=== PATIENT | male | born 1950 | race Caucasian/White ===

== ENCOUNTER 2021-10-10 10:34 | Day surgery (SDC) | payer MEDICARE ==
[2021-10-09 11:13] LABS: BASOPHILS % (AUTO) 0.5 % (0-1); EOSINOPHILS # (AUTO) 0.2 X10'3 (0-0.9); EOSINOPHILS % (AUTO) 3.3 % (0-6); HEMATOCRIT 40.3 % (42.0-52.0); HEMOGLOBIN 13.4 g/dl (14.0-17.9); LYMPHOCYTES # (AUTO) 1.2 X10'3 (1.1-4.8); MEAN CORPUSCULAR HEMOGLOBIN 29.5 PG (27.0-31.0); MEAN CORPUSCULAR HGB CONC 33.4 g/dL (33.0-36.5); MEAN CORPUSCULAR VOLUME 88.4 FL (78-98); MEAN PLATELET VOLUME 9.2 FL (7.4-10.4); MONOCYTES # (AUTO) 0.4 X10'3 (0-0.9); MONOCYTES % (AUTO) 7.9 % (2-12); NEUTROPHILS # (AUTO) 3.6 X10'3 (1.8-7.7); NEUTROPHILS % (AUTO) 66.3 % (42-75); PLATELET COUNT 189 X10'3 (140-440); RED BLOOD COUNT 4.56 X10'6 (4.70-6.10); RED CELL DISTRIBUTION WIDTH 13.5 % (11.5-14.5); WHITE BLOOD COUNT 5.4 X10'3 (4.5-11.0)
[2021-10-09 11:16] LABS: APTT 25 SECONDS (22-32)
[2021-10-09 11:25] LABS: ALBUMIN 3.9 G/DL (3.4-5.0); ANION GAP 9 (8-16); BLOOD UREA NITROGEN 15 MG/DL (7-18); BUN/CREATININE RATIO 17.6 (5.4-32.0); CALCIUM 8.3 MG/DL (8.5-10.1); CHLORIDE 108 MMOL/L (99-107); CHOL/HDL RATIO 2.3 (0.00-4.99); CHOLESTEROL 108 MG/DL (0-200); CREATININE 0.85 MG/DL (0.60-1.10); GLUCOSE 116 MG/DL (70-104); HDL CHOLESTEROL 46 MG/DL (35-60); LDL CHOLESTEROL 52 MG/DL (50-100); POTASSIUM 3.9 MMOL/L (3.5-5.1); SODIUM 142 MMOL/L (135-145); TOTAL CARBON DIOXIDE 24.9 MMOL/L (24-32); TRIGLYCERIDES 68 MG/DL (20-135); eGFR 89 ML/MIN
[~2021-10-10] VITALS: Ht 175.3 cm; Wt 94.3 kg
[2021-10-10] VITALS (13 sets, daily range): BP systolic 99–127; BP diastolic 58–77
[~2021-10-10 10:34] MED LIST: DESM0.2T23 NS; OMEP20TA43 PO
[2021-10-10] MEDS ORDERED: LORazepam 0.5 MG tablet PO PRN (10:55)
[2021-10-10] MEDS ORDERED: diphenhydrAMINE 25mg capsule PO PRN (10:55)
[2021-10-10] MEDS ORDERED: normal saline 1,000 ML IV SCH (10:55)
[2021-10-10] MEDS ORDERED: METO-395 PO (11:00)
[2021-10-10] MEDS ORDERED: DESM0.2T29 PO (11:00)
[2021-10-10] MEDS ORDERED: ATOR40TA72 PO (11:00)
[2021-10-10] MEDS ORDERED: FLO0.4C PO (11:00)
[2021-10-10] MEDS ORDERED: juice plus PO (11:00)
[2021-10-10] MEDS ORDERED: ASPI-920 PO (11:00)
[2021-10-10] MEDS ORDERED: nitroGLYCERIN-Tridil 50MG/D5W 250 ML IV ONE (11:55)
[2021-10-10] MEDS ORDERED: midazolam 1 mg/ML 2ml injection ONE (11:55)
[2021-10-10] MEDS ORDERED: fentaNYL/PF 50MCG/1 ML 2ML syringe ONE (11:55)
[2021-10-10] MEDS ORDERED: iohexol 350MG/ML 100ml bottle IV ONE (11:55)
[2021-10-10] MEDS ORDERED: heparin 1,000unit/ml 10ml vial 10 ML ONE (11:55)
[2021-10-10] MEDS ORDERED: verapamil 2.5 mg/ml inj IV ONE (11:55)
[2021-10-10] MEDS ORDERED: LIDOcaine 1%/PF 5ML 10 MG/ML VIAL ONE (11:56)
[2021-10-10] MEDS ORDERED: heparin 1,000 UNITS/NS 500ml 500 ML ONE (11:58)
[2021-10-10] MEDS ORDERED: aspirin 325mg tablet ONE (13:31)
[2021-10-10] MEDS ORDERED: clopidogrel 300mg tablet ONE (13:31)
[2021-10-10] MEDS ORDERED: HYDROcodone/acetaminophen 5mg/325mg tablet PO PRN (14:05)
[2021-10-10] MEDS ORDERED: HYDROcodone/acetaminophen 10/325mg tab PO PRN (14:05)
--- NOTE | 2021-10-10 14:30 | NUR ---
Approx 1430 phoned daughter Tiffanie, notified of approx DC home time and asked her to [employer] spot picker Plavix prescription and bring pills back when she picks up pt for DC. Pt drowsy, resting comfortably, awakens easily but falls back to sleep quickly.
--- NOTE | 2021-10-10 15:45 | NUR ---
Pt sitting up in bed eating turkey sandwich and drinking water without issues.
== END 2021-10-10 16:50 | disposition home or self-care (01) ==
LOC: SSTAY O 10:34
PROVIDERS: ATTEND Student in an Organized Health Care Education/Training Program
DX: R07.9 Chest pain, unspecified (principal); I25.10 Atherosclerotic heart disease of native coronary artery without angina pectoris; E11.9 Type 2 diabetes mellitus without complications; K21.9 Gastro-esophageal reflux disease without esophagitis; Z91.040 Latex allergy status; Z79.899 Other long term (current) drug therapy; Z98.890 Other specified postprocedural states
CPT/HCPCS: 36415; 80048; 80061; 85025; 85610; 85730; 93005; 93458; 99152; 99153; C1725; C1751; C1769; C1874; C1894; C9600; J1644; J2250; J3010; J3490; J7030; Q0163; Q9967; A5120; A6258; A6402

== ENCOUNTER 2022-01-15 11:41 | Emergency (ER) | payer MEDICARE ==
[~2022-01-15] VITALS: Ht 175.3 cm; Wt 94.1 kg
[~2022-01-15 11:41] MED LIST changes: +ASPI-920 PO; +ATOR40TA72 PO; -DESM0.2T23 NS; +DESM0.2T29 PO; +FLO0.4C PO; +METO-395 PO; +juice plus PO
[2022-01-15] MEDS: normal saline 1000ML IV soln IVB ONE (11:55)
[2022-01-15] MEDS: ondansetron/PF 4mg/2ml inj IV ONE (11:55)
[2022-01-15 12:07] LABS: BASOPHILS % (AUTO) 0.5 % (0-1); EOSINOPHILS # (AUTO) 0.2 X10'3 (0-0.9); EOSINOPHILS % (AUTO) 3.5 % (0-6); HEMATOCRIT 42.7 % (42.0-52.0); HEMOGLOBIN 14.4 g/dl (14.0-17.9); LYMPHOCYTES # (AUTO) 1.1 X10'3 (1.1-4.8); LYMPHOCYTES % (AUTO) 17.7 % (21-51); MEAN CORPUSCULAR HEMOGLOBIN 30.1 PG (27.0-31.0); MEAN CORPUSCULAR HGB CONC 33.7 g/dL (33.0-36.5); MEAN CORPUSCULAR VOLUME 89.3 FL (78-98); MEAN PLATELET VOLUME 9.1 FL (7.4-10.4); MONOCYTES # (AUTO) 0.5 X10'3 (0-0.9); MONOCYTES % (AUTO) 8.3 % (2-12); NEUTROPHILS # (AUTO) 4.5 X10'3 (1.8-7.7); PLATELET COUNT 186 X10'3 (140-440); RED BLOOD COUNT 4.78 X10'6 (4.70-6.10); RED CELL DISTRIBUTION WIDTH 13.6 % (11.5-14.5); WHITE BLOOD COUNT 6.4 X10'3 (4.5-11.0)
[2022-01-15] MEDS ORDERED: nitroGLYCERIN 0.4mg SUBLingual tab SL PRN (13:00)
[2022-01-15 13:02] LABS: ALANINE AMINOTRANSFERASE 52 U/L (12-78); ALBUMIN 3.5 G/DL (3.4-5.0); ALBUMIN/GLOBULIN RATIO 1.2 (1.1-1.5); ALKALINE PHOSPHATASE 96 IU/L (46-116); ANION GAP 9 (8-16); ASPARTATE AMINO TRANSFERASE 23 U/L (10-37); BILIRUBIN,TOTAL 0.6 MG/DL (0.1-1.0); BLOOD UREA NITROGEN 18 MG/DL (7-18); BUN/CREATININE RATIO 21.4 (5.4-32.0); CALCIUM 8.4 MG/DL (8.5-10.1); CHLORIDE 106 MMOL/L (99-107); CREATININE 0.84 MG/DL (0.60-1.10); GLUCOSE 145 MG/DL (70-104); POTASSIUM 3.8 MMOL/L (3.5-5.1); SODIUM 141 MMOL/L (135-145); TOTAL CARBON DIOXIDE 26.1 MMOL/L (24-32); TOTAL PROTEIN 6.4 G/DL (6.4-8.2); eGFR 90 ML/MIN
--- NOTE | 2022-01-15 13:18 | NUR ---
TC FROM DAUGHTER, MAEGAN, FOR CONDITION REPORT. CONTACT PHONE
[2022-01-15] MEDS: aspirin 81mg tab.chew PO ONE (13:45)
[2022-01-15 15:16] VITALS: BP 122/80
[2022-01-15] MEDS ORDERED: LOP25T PO (15:23)
== END 2022-01-15 16:21 | disposition home or self-care (01) ==
LOC: ER 11:41
DX: I95.1 Orthostatic hypotension (principal); I25.10 Atherosclerotic heart disease of native coronary artery without angina pectoris; Z79.899 Other long term (current) drug therapy; Z79.82 Long term (current) use of aspirin
CPT/HCPCS: 36415; 71045; 80053; 83880; 84484; 85025; 93005; 96361; 96374; 99285; J2405; J7030